=== PATIENT | female | born 1985 | race Caucasian/White ===

== ENCOUNTER 2018-07-15 12:47 | Inpatient (IN) | payer MEDICAID ==
[~2018-07-15] VITALS: Ht 152.4 cm; Wt 54.1 kg
[~2018-07-15 12:47] MED LIST: ALPRAZOLAM 0.0.25 M1 PO; CARAFATE 1 GM TA1 G1 PO; FLONASE 0.05%50 MCG NASAL; HYDROCODON-ACE1 EAC7 PO; HYDROCODONE-AP1 EAC6 PO; IRON325 PO; NORCO 5-325 TA1 EACH PO; NOVOLIN R100 UNIT/3; PANTOPRAZOLE SO40 M1 PO; PHENERGAN 25 MG25 M1 PO; PROMS25 WY RECTAL; PROTONIX40 M1 PO; ZOFRAN ODT4 MG PO
[2018-07-15 12:57] VITALS: BP 133/86
[2018-07-15] MEDS ORDERED: KEPPRA250 MG PO (13:03)
[2018-07-15 13:43] LABS: URINE BILIRUBIN NEGATIVE (Negative); URINE BLOOD 2+ (Negative); URINE CLARITY CLEAR; URINE COLOR YELLOW; URINE GLUCOSE-RANDOM NEGATIVE (Negative); URINE KETONES NEGATIVE (Negative); URINE LEUKOCYTES-REFLEX NEGATIVE (Negative); URINE NITRITE-REFLEX NEGATIVE (Negative); URINE PROTEIN NEGATIVE (Negative); URINE SPECIFIC GRAVITY >= 1.030 (1.005-1.030); URINE UROBILINOGEN 0.2 E.U./dl (0.2-1.0)
[2018-07-15 13:59] LABS: BACTERIA-REFLEX 1-9 Few /HPF (None Seen); CASTS None Seen /LPF (None Seen); CRYSTALS None Seen /LPF (None Seen); MUCUS None Seen strn/LPF (None Seen); SQUAMOUS >10 Many /LPF (0-3); URINE RBC 3-10 Few /HPF (0-2); URINE WBC-REFLEX 0-5 Rare /HPF (0-5)
[2018-07-15 14:36] LABS: ABSOLUTE EOSINOPHILS 0.1 thou/uL (0.0-0.7); ABSOLUTE LYMPHOCYTES 1.2 thou/uL (0.8-5.3); ABSOLUTE MONOCYTES 0.2 thou/uL (0.0-1.2); ABSOLUTE NEUTROPHILS 2.5 thou/uL (1.6-8.1); BASOPHILS 0.8 %; EOSINOPHILS 2.7 %; HEMATOCRIT 31.4 % (37.0-47.0); LYMPHOCYTES 29.3 %; MCH 22.4 pg (26.0-34.0); MCHC 31.8 g/dL (28.0-37.0); MCV 70.4 fL (80.0-100.0); MONOCYTES 5.4 %; MPV 7.9 fl. (7.2-11.1); NUCLEATED RBCS 0 /100WBC; PLATELET COUNT* 294 thou/uL (150-400); POLYS 61.8 %; RBC 4.46 mil/uL (4.20-5.00); RDW-CV 23.4 % (10.5-14.5)
[2018-07-15 15:37] LABS: AMP/METHAMP Negative (Negative); BARBITURATES Negative (Negative); BENZODIAZEPINES Negative (Negative); COCAINE Negative (Negative); METHADONE Negative (Negative); OPIATES Negative (Negative); PCP Negative (Negative); THC Negative (Negative)
[2018-07-15 16:32] LABS: CREATININE 0.6 mg/dL (0.6-1.3); POTASSIUM 3.9 mmol/L (3.5-5.1)
[2018-07-15 16:33] LABS: CALCIUM 8.8 mg/dL (8.5-10.1); TOTAL BILIRUBIN 0.6 mg/dL (<0.1-1.0)
[2018-07-15 16:34] LABS: ALBUMIN 3.7 g/dL (3.4-5.0)
[2018-07-15 16:47] LABS: APTT 29.9 Seconds (25.0-31.3); PROTIME 10.3 Seconds (9.20-11.50)
[2018-07-15 18:01] VITALS: BP 112/68
[2018-07-15 18:10] VITALS: BP 126/58
[2018-07-15] MEDS ORDERED: PROTONIX40 M1 PO (18:27)
--- NOTE | 2018-07-15 18:31 | NUR ---
PT ADMITTED TO UNIT ALERT AND ORIENTED X4. PT IS ON ROOM AIR. PT HAS AN ILEOSTOMY. PT C/O NAUSA AND VOMITING BLOOD ON ADMISSION. PT C/O PAIN IN ABD. PT IS CURRENTLY ON A PROTONIC DRIP. PT IS STEADY ON FEET AND IS STANDY BY ASSIST. FALL RISK PRECAUTIONS IN PLACE. WILL CONTINUE TO MONITOR.
--- NOTE | 2018-07-15 18:59 | NUR ---
PT REMAINED ALERT AND ORIENTED. PT C/O PAIN, IV MORPHINE GIVEN ORDERED. PT IS CURRENTLY NPO. FALL RISK PRECAUTIONS IN PLACE. HOURLY ROUNDING COMPLETED. WILL CONTINUE TO MONITOR.
[2018-07-15 20:22] VITALS: BP 110/63; BP 116/61
[2018-07-16] VITALS: BP 91/58
[2018-07-16 04:00] VITALS: BP 100/44
--- NOTE | 2018-07-16 05:02 | NUR ---
PT CARE ASSUMED AT 1930. SAT MAINTAINED IN RA. ALERT AND ORINETED X4. CALL LIGHT WITHIN REACH AND BED IN LOW POSITION. PT HAS COLOSTOMY BAG. UP STANDBY. SR TO SB RUNNING ON TELE MONITOR. PT C/O PAIN, MEDICATION GIVEN PER EMAR. HOURLY ROUNDING DONE FOR PT SAFETY.
[2018-07-16 11:59] VITALS: BP 108/72
[2018-07-16 15:45] VITALS: BP 105/66
[2018-07-16 18:06] LABS: HEMATOCRIT 28.3 % (37.0-47.0); HEMOGLOBIN 8.8 gm/dL (12.0-15.0)
--- NOTE | 2018-07-16 20:06 | NUR ---
I ASSUMED CARE OF THE PATIENT AT 0700. SHE IS ALERT AND ORIENTED X4 AND IS UP AD [facility]. PATIENT WENT OFF OF THE UNIT FOR EGD SHORTLY AFTER SHIFT CHANGE. SHE WAS NPO PRIOR TO PROCEDURE. HOURLY ROUNDING WAS COMPLETED AND PATIENT NEEDS WERE MET. PAIN IS MANAGED WITH PRN MEDS. PATIENT TOLERATED A CARB CONTROL DIET AFTER PROCEDURE. THERE IS A GASTRIC EMPTYING STUDY TO BE COMPLETED ON 07/17/18. BLOOD SUGARS WERE STABLE TODAY AND INSULIN WAS NOT INDICATED. BED IS IN THE LOW LOCKED POSITION AND CALL LIGHT IS IN REACH. CONTINUOUS FLUIDS ARE GOING AND ANTIBIOTICS WERE COMPLETED. WILL CONTINUE TO MONITOR.
[2018-07-16 20:20] VITALS: BP 107/89
[2018-07-17 00:08] VITALS: BP 117/74
[2018-07-17 04:40] VITALS: BP 93/52
--- NOTE | 2018-07-17 04:57 | NUR ---
PT CARE ASSUMED AT 1930. SAT MAINTAINED IN RA. ALERT AND ORIENTED X4. PT CALLS FOR PAIN MEDICATION FREQUENTLY, MEDICATION GIVEN PER EMAR. CALL LIGHT WITHIN REACH AND BED IN LOW POSITION. DENIES SOB. PT HAS COLOSTOMY BAG, EMPTIES BY HERSELF.HOURLY ROUNDING DONE FOR PT SAFETY.
[2018-07-17 08:25] VITALS: BP 93/48
[2018-07-17 15:27] VITALS: BP 93/48
[2018-07-17] MEDS ORDERED: TRAMADOL 50 MG50 MG PO (15:27)
[2018-07-17 15:33] VITALS: BP 96/54
--- NOTE | 2018-07-17 16:25 | NUR ---
PT IS ALERT AND ORIENTED X 4. NPO FOR TESTING. IVFS INFUSING. RECEIVED IV MORPHINE FOR PAIN RELIEF. RECEIVED IV ZOFRAN FOR NAUSEA. GASTRIC EMPTYING TESTING STARTED @ 1030 AND COMPLETED @ 1440. UP IN ROOM WITH MINIMAL ASSISTANCE. COLOSTOMY SELF MANAGED. DISCHARGE INSTRUCTIONS AND PRESCRIPTIONS GIVEN. IV REMOVED. PT LEFT UNIT WITH NURSING STAFF TO LEAVE WITH PERSONAL BELONGINGS BY PRIVATE CAR @ 1608 WITH SIGNIFICANT OTHER.
[2018-07-17 16:33] VITALS: BP 93/48
[2018-07-18] MEDS ORDERED: NORCO 5-325 TA1 EAC1 PO (21:35)
--- NOTE | 2018-07-19 12:23 | CON ---
[address] [address] CONSULTATION Name: EUGENIA RADFORD Room: [address] IN M.R.#: [id number] Admission: 07/15/18 Attend Phys: Yinka Marrero MD Discharge: 07/17/18 Date of : 89 Report #: [id number] THIS REPORT FOR: //name// CC: FENG physician/PCP Yinka Marrero DATE OF SERVICE: 07/17/2018 ATTENDING PHYSICIAN: Dr. Dwyer. REASON FOR EVALUATION: Positive blood culture. HISTORY OF PRESENT ILLNESS: Chart reviewed, patient examined. This is a 32-year-old woman with diabetes mellitus type 2 diagnosed at age 10. Other medical history includes history of ulcerative colitis and Crohn's for the former. She does have total colectomy with ileostomy. She still has ongoing intermittent disease related to her Crohn's. She presented with hematemesis, bright red blood, lower abdominal-related pain. She notes she has had previous esophageal perforation. She has been evaluated by GI. She underwent upper endoscopy, which showed normal esophagus, gastric bypass with normal size pouch, gastrojejunal anastomosis. Fresh blood was noted with clots. There is no particular focus that was noted. She is scheduled to have gastric emptying study. As per the initial workup, 2 blood cultures collected now 1 out of 2 with Gram-positive cocci. On questioning, she denies any significant pulmonary-related complaints. It is not clear that she has had any fevers. Does admit to some chills. She has had some anorexia with poor p.o. intake. She was started empirically on vancomycin. ALLERGIES: PENICILLINS, TORADOL, IOHEXOL. CURRENT MEDICATIONS: Include vancomycin, sucralfate, ferrous sulfate, pantoprazole, p.r.n. analgesics and antiemetics. PAST MEDICAL HISTORY: As described above, diabetes mellitus type 1, history of PTSD, depression, seizure disorder, history of Crohn's disease, colectomy with ileostomy, previous gastric bypass, previous partial gastrectomy. SOCIAL HISTORY: Nonsmoker, no ethanol. FAMILY HISTORY: Noncontributory. REVIEW OF SYSTEMS: Ten-point review of systems is otherwise unremarkable with exception noted in the history of present illness. PHYSICAL EXAMINATION: GENERAL: [id number] distress. [place] appears [place] [address] CONSULTATION Name: EUGENIA RADFORD Room: [address]#: [id number] Admission: 07/15/18 Attend Phys: Yinka Marrero MD Discharge: 07/17/18 Date of : 89 Report #: [id number] undernourished. She is lucid, not encephalopathic, somewhat of a flat affect. VITAL SIGNS: Temperature 98, pulse 69, respirations 16, blood pressure is 93/52. SKIN: Warm, dry, no rashes. HEENT: Extraocular muscles intact. No oral lesions. NECK: Supple. LUNGS: Clear to auscultation. HEART: Regular. I do not appreciate any murmur. ABDOMEN: Ileostomy in the right lower quadrant. She has got a midline incision that is well healed. Somewhat tender to light percussion. I do not think there are any true peritoneal signs. LOWER EXTREMITIES: Without edema. GENITOURINARY: Deferred. RECTAL: Deferred. LABORATORY DATA: Initial urinalysis, 0-5 white cells. CBC initially, white count 4.0, H and H 10.0, 31.4, platelets of 294. Drug screen was negative. test was negative. Chest x-ray, no acute process. Lactic acid 0.8. Electrolytes: Sodium 140, potassium 3.9, chloride 106, bicarb is 21, anion gap of 13, BUN and creatinine 16 and 0.6, glucose of 84. Albumin 3.7, total protein of 7.0. CT abdomen and pelvis noted the postoperative changes, prior right lower quadrant colostomy, stone in the right kidney pole, hydronephrosis. One out of two blood cultures positive, Gram-positive cocci. ASSESSMENT: Hematemesis. The patient underwent evaluation without clear option. I think in all likelihood, this is a false positive or contaminant. We will continue the next 24 hours with empiric antimicrobial therapy. I do not really have reasonable source, cannot entirely exclude streptococcus. We will await GI's final recommendations pending study results. I do not see another source that may explain the positive blood culture. Thank you, we will follow the patient. <ELECTRONICALLY SIGNED> By: Zachariah Brothers MD 07/19/18 [id number] Brothers MD /nt
== END 2018-07-17 16:08 | disposition home or self-care (01) | DRG 378 ==
LOC: M.ERS 12:47 → M.TBA-ER 15:11 → M.2W 15:11 → M.TBA-ER 17:58 → M.2W 07-17 14:02
PROVIDERS: Internal Medicine Gastroenterology; Nurse Practitioner Family; Physician Assistant
PROC: 3E1G88Z Irrigation of Upper GI using Irrigating Substance, Via Natural or Artificial Opening Endoscopic (ICD-10-PCS; principal; 2018-07-16)
DX: K92.0 Hematemesis (principal); K50.90 Crohn's disease, unspecified, without complications; D62 Acute posthemorrhagic anemia; E10.9 Type 1 diabetes mellitus without complications; K92.1 Melena; F43.10 Post-traumatic stress disorder, unspecified; G40.909 Epilepsy, unspecified, not intractable, without status epilepticus; F32.9 Major depressive disorder, single episode, unspecified; Z88.0 Allergy status to penicillin; Z88.8 Allergy status to other drugs, medicaments and biological substances; Z90.49 Acquired absence of other specified parts of digestive tract; Z90.3 Acquired absence of stomach [part of]; Z79.899 Other long term (current) drug therapy; Z87.11 Personal history of peptic ulcer disease; Z98.84 Bariatric surgery status

== ENCOUNTER 2018-07-18 20:31 | Emergency (ER) | payer MEDICAID ==
[~2018-07-18] VITALS: Ht 152.4 cm; Wt 56.7 kg
[~2018-07-18 20:31] MED LIST changes: +KEPPRA250 MG PO; +TRAMADOL 50 MG50 MG PO
[2018-07-18 20:59] LABS: URINE BILIRUBIN NEGATIVE (Negative); URINE BLOOD 1+ (Negative); URINE CLARITY CLEAR; URINE COLOR YELLOW; URINE GLUCOSE-RANDOM NEGATIVE (Negative); URINE KETONES 1+ (Negative); URINE LEUKOCYTES-REFLEX NEGATIVE (Negative); URINE NITRITE-REFLEX NEGATIVE (Negative); URINE PROTEIN NEGATIVE (Negative); URINE SPECIFIC GRAVITY >= 1.030 (1.005-1.030); URINE UROBILINOGEN 0.2 E.U./dl (0.2-1.0)
[2018-07-18 21:03] LABS: ABSOLUTE EOSINOPHILS 0.1 thou/uL (0.0-0.7); ABSOLUTE LYMPHOCYTES 1.8 thou/uL (0.8-5.3); ABSOLUTE MONOCYTES 0.4 thou/uL (0.0-1.2); ABSOLUTE NEUTROPHILS 3.2 thou/uL (1.6-8.1); BASOPHILS 0.4 %; EOSINOPHILS 2.1 %; HEMATOCRIT 30.4 % (37.0-47.0); HEMOGLOBIN 9.5 gm/dL (12.0-15.0); LYMPHOCYTES 32.2 %; MCH 22.2 pg (26.0-34.0); MCHC 31.3 g/dL (28.0-37.0); MONOCYTES 6.9 %; MPV 7.2 fl. (7.2-11.1); NUCLEATED RBCS 0 /100WBC; PLATELET COUNT* 288 thou/uL (150-400); POLYS 58.4 %; RBC 4.28 mil/uL (4.20-5.00); RDW-CV 22.8 % (10.5-14.5); WBC 5.6 thou/uL (4.0-11.0)
[2018-07-18 21:07] LABS: CALCIUM 8.5 mg/dL (8.5-10.1); CREATININE 0.7 mg/dL (0.6-1.3)
[2018-07-18 21:08] LABS: POTASSIUM 2.9 mmol/L (3.5-5.1)
[2018-07-18 21:11] LABS: ALBUMIN 3.6 g/dL (3.4-5.0); TOTAL BILIRUBIN 0.5 mg/dL (<0.1-1.0); TOTAL PROTEIN 7.6 g/dL (6.4-8.2)
[2018-07-18 21:16] LABS: CASTS None Seen /LPF (None Seen); MUCUS 4-6 Moderate strn/LPF (None Seen); SQUAMOUS >10 Many /LPF (0-3)
[2018-07-18 21:17] LABS: URINE WBC-REFLEX 0-5 Rare /HPF (0-5)
[2018-07-18 21:18] LABS: BACTERIA-REFLEX 1-9 Few /HPF (None Seen); CRYSTALS None Seen /LPF (None Seen); URINE RBC 3-10 Few /HPF (0-2)
[2018-07-18] MEDS ORDERED: NORCO 5-325 TA1 EAC1 PO (21:35)
[2018-07-18 21:48] VITALS: BP 105/66
[2018-07-19 04:23] LABS: HYPOCHROMASIA 2+; PLATELET ESTIMATE ADEQUATE
[2018-07-19 04:24] LABS: ANISOCYTOSIS 2+; MICROCYTES 2+
== END 2018-07-18 21:48 | disposition home or self-care (01) ==
LOC: M.ERS 20:31
PROVIDERS: Nurse Practitioner Family
DX: K92.0 Hematemesis (principal); R10.84 Generalized abdominal pain; K50.90 Crohn's disease, unspecified, without complications; E10.9 Type 1 diabetes mellitus without complications; F32.9 Major depressive disorder, single episode, unspecified; F42.9 Obsessive-compulsive disorder, unspecified; Z90.49 Acquired absence of other specified parts of digestive tract; Z86.718 Personal history of other venous thrombosis and embolism; Z91.041 Radiographic dye allergy status; Z88.6 Allergy status to analgesic agent; Z88.0 Allergy status to penicillin

== ENCOUNTER 2018-07-20 19:15 | Emergency (ER) | payer MEDICAID ==
[~2018-07-20] VITALS: Ht 152.4 cm; Wt 56.7 kg
[~2018-07-20 19:15] MED LIST changes: +NORCO 5-325 TA1 EAC1 PO
[2018-07-20 19:54] LABS: URINE BILIRUBIN NEGATIVE (Negative); URINE BLOOD TRACE (Negative); URINE CLARITY CLEAR; URINE COLOR YELLOW; URINE GLUCOSE-RANDOM NEGATIVE (Negative); URINE KETONES NEGATIVE (Negative); URINE LEUKOCYTES-REFLEX NEGATIVE (Negative); URINE NITRITE-REFLEX NEGATIVE (Negative); URINE PROTEIN NEGATIVE (Negative); URINE SPECIFIC GRAVITY >= 1.030 (1.005-1.030); URINE UROBILINOGEN 0.2 E.U./dl (0.2-1.0)
[2018-07-20 19:58] LABS: ABSOLUTE EOSINOPHILS 0.1 thou/uL (0.0-0.7); ABSOLUTE LYMPHOCYTES 1.7 thou/uL (0.8-5.3); ABSOLUTE MONOCYTES 0.3 thou/uL (0.0-1.2); BASOPHILS 0.6 %; EOSINOPHILS 2.4 %; HEMATOCRIT 32.3 % (37.0-47.0); HEMOGLOBIN 10.1 gm/dL (12.0-15.0); MCH 22.1 pg (26.0-34.0); MCHC 31.3 g/dL (28.0-37.0); MCV 70.6 fL (80.0-100.0); MONOCYTES 6.1 %; MPV 7.5 fl. (7.2-11.1); NUCLEATED RBCS 0 /100WBC; PLATELET COUNT* 337 thou/uL (150-400); POLYS 57.9 %; RBC 4.58 mil/uL (4.20-5.00); WBC 5.3 thou/uL (4.0-11.0)
[2018-07-20 20:00] LABS: CALCIUM 8.7 mg/dL (8.5-10.1); CREATININE 0.7 mg/dL (0.6-1.3)
[2018-07-20 20:04] LABS: ALBUMIN 3.6 g/dL (3.4-5.0); TOTAL BILIRUBIN 0.4 mg/dL (<0.1-1.0); TOTAL PROTEIN 7.7 g/dL (6.4-8.2)
[2018-07-20 20:16] LABS: APTT 29.8 Seconds (25.0-31.3); INR 0.9; PROTIME 9.6 Seconds (9.20-11.50)
[2018-07-20 20:30] LABS: ANISOCYTOSIS 2+; MICROCYTES 2+; OVALOCYTES 1+; PLATELET ESTIMATE ADEQUATE
[2018-07-20 20:31] LABS: HYPOCHROMASIA 1+
[2018-07-20 21:25] VITALS: BP 124/67
== END 2018-07-20 21:28 | disposition home or self-care (01) ==
LOC: M.ERS 19:15
PROVIDERS: Nurse Practitioner Family
DX: R10.32 Left lower quadrant pain (principal); E87.6 Hypokalemia; K92.0 Hematemesis; G40.909 Epilepsy, unspecified, not intractable, without status epilepticus; F32.9 Major depressive disorder, single episode, unspecified; E10.9 Type 1 diabetes mellitus without complications; K50.90 Crohn's disease, unspecified, without complications; Z98.84 Bariatric surgery status; Z88.0 Allergy status to penicillin; Z88.8 Allergy status to other drugs, medicaments and biological substances

== ENCOUNTER 2018-09-01 15:22 | Emergency (ER) | payer MEDICAID ==
[~2018-09-01] VITALS: Ht 152.4 cm; Wt 51.7 kg
[2018-09-01 16:05] LABS: URINE BILIRUBIN NEGATIVE (Negative); URINE BLOOD 3+ (Negative); URINE CLARITY CLEAR; URINE COLOR YELLOW; URINE GLUCOSE-RANDOM NEGATIVE (Negative); URINE KETONES NEGATIVE (Negative); URINE LEUKOCYTES-REFLEX 1+ (Negative); URINE PROTEIN 2+ (Negative); URINE SPECIFIC GRAVITY 1.025 (1.005-1.030); URINE UROBILINOGEN 0.2 E.U./dl (0.2-1.0)
[2018-09-01 16:06] LABS: URINE NITRITE-REFLEX POSITIVE (Negative)
[2018-09-01 16:11] LABS: MUCUS 0-3 Light strn/LPF (None Seen); SQUAMOUS >10 Many /LPF (0-3); URINE RBC >20 Many /HPF (0-2); URINE WBC-REFLEX >25 Many /HPF (0-5)
[2018-09-01 16:12] LABS: CASTS None Seen /LPF (None Seen); CRYSTALS None Seen /LPF (None Seen)
[2018-09-01 16:17] LABS: ABSOLUTE BASOPHILS 0.1 thou/uL (0.0-0.2); ABSOLUTE EOSINOPHILS 0.2 thou/uL (0.0-0.7); ABSOLUTE LYMPHOCYTES 2.2 thou/uL (0.8-5.3); ABSOLUTE MONOCYTES 0.3 thou/uL (0.0-1.2); ABSOLUTE NEUTROPHILS 4.4 thou/uL (1.6-8.1); BASOPHILS 0.7 %; HEMOGLOBIN 8.8 gm/dL (12.0-15.0); LYMPHOCYTES 30.6 %; MCH 20.6 pg (26.0-34.0); MCHC 30.4 g/dL (28.0-37.0); MCV 67.6 fL (80.0-100.0); MONOCYTES 4.7 %; MPV 6.8 fl. (7.2-11.1); NUCLEATED RBCS 0 /100WBC; PLATELET COUNT* 503 thou/uL (150-400); RBC 4.29 mil/uL (4.20-5.00); RDW-CV 17.5 % (10.5-14.5); WBC 7.2 thou/uL (4.0-11.0)
[2018-09-01 16:25] LABS: CALCIUM 8.9 mg/dL (8.5-10.1); CREATININE 0.7 mg/dL (0.6-1.3); POTASSIUM 3.8 mmol/L (3.5-5.1)
[2018-09-01 16:29] LABS: ALBUMIN 3.8 g/dL (3.4-5.0); TOTAL BILIRUBIN 0.5 mg/dL (<0.1-1.0); TOTAL PROTEIN 7.8 g/dL (6.4-8.2)
[2018-09-01 16:34] LABS: PLATELET ESTIMATE INCREASED
[2018-09-01 16:35] LABS: ANISOCYTOSIS 1+; MICROCYTES 1+
[2018-09-01 16:36] LABS: HYPOCHROMASIA 2+
[2018-09-01] MEDS ORDERED: NORCO 5-325 TA1 EACH PO (19:01)
[2018-09-01] MEDS ORDERED: BACTRIM DS TAB1 EACH PO (19:01)
[2018-09-01 19:15] VITALS: BP 102/66
== END 2018-09-01 19:15 | disposition left against medical advice (07) ==
LOC: M.ERS 15:22
PROVIDERS: Physician Assistant
DX: N39.0 Urinary tract infection, site not specified (principal); K92.0 Hematemesis; E10.9 Type 1 diabetes mellitus without complications; F32.9 Major depressive disorder, single episode, unspecified; F42.9 Obsessive-compulsive disorder, unspecified; K50.90 Crohn's disease, unspecified, without complications; Z88.6 Allergy status to analgesic agent; Z91.041 Radiographic dye allergy status; Z88.0 Allergy status to penicillin; Z90.49 Acquired absence of other specified parts of digestive tract

== ENCOUNTER 2018-10-07 16:30 | Emergency (ER) | payer MEDICAID ==
[~2018-10-07] VITALS: Ht 152.4 cm; Wt 52.2 kg
[~2018-10-07 16:30] MED LIST changes: +BACTRIM DS TAB1 EACH PO; +KEPPRA 500 MG500 M1 PO; +REGLAN 10 MG TA10 MG PO
[2018-10-07 17:18] LABS: ABSOLUTE BASOPHILS 0.1 thou/uL (0.0-0.2); ABSOLUTE EOSINOPHILS 0.2 thou/uL (0.0-0.7); ABSOLUTE LYMPHOCYTES 2.4 thou/uL (0.8-5.3); ABSOLUTE MONOCYTES 0.4 thou/uL (0.0-1.2); BASOPHILS 1.2 %; EOSINOPHILS 3.6 %; HEMATOCRIT 37.6 % (37.0-47.0); HEMOGLOBIN 12.1 gm/dL (12.0-15.0); LYMPHOCYTES 39.9 %; MCH 24.9 pg (26.0-34.0); MCHC 32.1 g/dL (28.0-37.0); MCV 77.7 fL (80.0-100.0); MONOCYTES 6.3 %; MPV 7.7 fl. (7.2-11.1); NUCLEATED RBCS 0 /100WBC; PLATELET COUNT* 297 thou/uL (150-400); RBC 4.84 mil/uL (4.20-5.00); RDW-CV 31.5 % (10.5-14.5)
[2018-10-07 17:25] LABS: PROTIME 9.8 Seconds (9.20-11.50)
[2018-10-07 17:43] LABS: ALBUMIN 3.5 g/dL (3.4-5.0); CALCIUM 8.4 mg/dL (8.5-10.1); CREATININE 0.7 mg/dL (0.6-1.3); POTASSIUM 3.9 mmol/L (3.5-5.1); TOTAL BILIRUBIN 0.3 mg/dL (<0.1-1.0); TOTAL PROTEIN 7.2 g/dL (6.4-8.2)
[2018-10-07 17:49] LABS: ANISOCYTOSIS 3+; PLATELET ESTIMATE ADEQUATE
[2018-10-07 17:50] LABS: MICROCYTES 1+; OVALOCYTES Occasional; TEARDROPS 1+
[2018-10-07 19:03] LABS: URINE BILIRUBIN NEGATIVE (Negative); URINE BLOOD NEGATIVE (Negative); URINE CLARITY CLEAR; URINE COLOR YELLOW; URINE GLUCOSE-RANDOM NEGATIVE (Negative); URINE KETONES NEGATIVE (Negative); URINE LEUKOCYTES-REFLEX NEGATIVE (Negative); URINE NITRITE-REFLEX NEGATIVE (Negative); URINE PROTEIN NEGATIVE (Negative); URINE UROBILINOGEN 0.2 E.U./dl (0.2-1.0)
[2018-10-07] MEDS ORDERED: NORCO 5-325 TA1 EACH PO (19:31)
[2018-10-07] MEDS ORDERED: ZOFRAN ODT4 MG PO (19:31)
[2018-10-07 20:14] VITALS: BP 93/60
== END 2018-10-07 20:14 | disposition home or self-care (01) ==
LOC: M.ERS 16:30
PROVIDERS: Physician Assistant
DX: R10.13 Epigastric pain (principal); R10.33 Periumbilical pain; R11.2 Nausea with vomiting, unspecified; K50.90 Crohn's disease, unspecified, without complications; E11.9 Type 2 diabetes mellitus without complications; F32.9 Major depressive disorder, single episode, unspecified; F42.9 Obsessive-compulsive disorder, unspecified; Z90.49 Acquired absence of other specified parts of digestive tract; Z79.4 Long term (current) use of insulin; Z91.041 Radiographic dye allergy status; Z88.6 Allergy status to analgesic agent; Z88.0 Allergy status to penicillin; Z90.89 Acquired absence of other organs

== ENCOUNTER 2018-12-31 20:30 | Inpatient (IN) | payer MEDICAID ==
[~2018-12-31] VITALS: Ht 152.4 cm; Wt 51.7 kg
--- NOTE | ~2018-12-31 | CON ---
[address] [address] CONSULTATION Name: EUGENIA RADFORD Room: [address] IN M.R.#: [id number] Admission: 12/31/18 Attend Phys: Meena Pressley Discharge: 01/01/19 Date of : 89 Report #: [id number] THIS REPORT FOR: //name// CC: FENG physician/PCP Sudhir Brooke HISTORY OF PRESENT ILLNESS: This is a pleasant 33-year-old female with a past medical history significant for suspected Crohn's disease, multiple episodes of nausea, vomiting, hematemesis, type 2 diabetes, who is presenting for evaluation of hematemesis. The patient reportedly has been to several hospitals including [facility] and [facility] for similar symptoms over the last few years. The patient reports that she was 2 days back, and following that, began having episodes of abdominal pain, nausea and vomiting. She was found to have episode hematemesis. The patient reports seeing about a cup full of bright red blood in her vomit, she reports similar to her episodes in the past. The patient reports she has had no other episodes of vomiting or hematemesis ____. The patient previously had an EGD performed by Dr. Turpin in the hospital, where she was found to have blood clots in her gastric fundus, without evidence of any source of bleeding. Additionally, the patient reports she had some sort of inflammatory bowel disease, for which she had a total colectomy and an ileostomy. The patient also reports a prior history of gastric bypass, but it is an unclear reason, why she had this. PAST MEDICAL HISTORY: As mentioned; ____ suspected inflammatory bowel disease/Crohn's disease, recurrent episodes of hematemesis, type 2 diabetes, gastroparesis. PAST SURGICAL HISTORY: History of gastric bypass, permanent ileostomy in 1999, proctocolectomy in 2014. SOCIAL HISTORY: The patient denies smoking, alcohol or recreational drug use. FAMILY HISTORY: Significant for diabetes, but no history of inflammatory bowel disease or colorectal cancer or Luna-related neoplasia. PHYSICAL EXAMINATION: VITAL SIGNS: Temperature 36.9, pulse rate 115, respirations 13, blood pressure 110/62. GENERAL: The patient is alert, awake, oriented x 3. HEENT: Pupils are equal, round, reactive to light and accommodation. Mucous membranes are moist. LUNGS: There is no congestion. Lungs are clear to auscultation bilaterally. CARDIOVASCULAR: Rate and rhythm regular, S1, S2 present. ABDOMEN: Soft. There is no significant distention, guarding or rigidity. The ileostomy is in place. No pain or [place] [address] CONSULTATION Name: EUGENIA RADFORD Room: [address] IN M.R.#: [id number] Admission: 12/31/18 Attend Phys: Meena Pressley Discharge: 01/01/19 Date of : 89 Report #: [id number] EXTREMITIES: Warm, well perfused, no edema. SKIN: Warm and dry. LABORATORY DATA: Hemoglobin 9.8, hematocrit 29.5, platelets 210, WBC count 4.7. Sodium 141, potassium 3.4, chloride 106, bicarbonate 24, BUN 13, creatinine 0.9, total bilirubin 0.6, AST 14, ALT 20, alkaline phosphatase 67. INR 1. Urine for benzos and opiates screen positive. ASSESSMENT AND PLAN: This is a 33-year-old female with several comorbidities including possible inflammatory bowel disease, status post total colectomy, gastroparesis, type 2 diabetes, status post gastric bypass, is presenting with episode of hematemesis. I offered the patient endoscopic evaluation for management of hematemesis, but she refused. The patient was quite adamant that she would like to get transferred to [place], [place]. I offered the patient to take her to [facility], where we have inpatient capsular endoscopy service available. However, she declined. The patient admits that her insurance would not be accepted at [facility] and would only be accepted at [place], [place]. The patient is requesting transfer. We can initiate it, provided that she is hemodynamically stable and continues to remain asymptomatic while she is here. About 30 minutes were spent face to face with the patient, obtaining history, performing the physical examination, formulating plan of care. All of the patient's questions were answered to her satisfaction. Thank you for this consultation. Please do not hesitate to call or contact me with any further questions. By: [id number] M Montilla MD /tha
[~2018-12-31 20:30] MED LIST changes: +FLAGYL500 M1 PO; +KEPPRA750 MG PO; +LEVAQUIN 500 M500 M2 PO; -NOVOLIN R100 UNIT/3; +NOVOLIN R100 UNIT/3 SUBQ
[2018-12-31 20:35] VITALS: BP 115/57
[2018-12-31 21:07] LABS: ABSOLUTE EOSINOPHILS 0.1 thou/uL (0.0-0.7); ABSOLUTE LYMPHOCYTES 1.6 thou/uL (0.8-5.3); ABSOLUTE MONOCYTES 0.4 thou/uL (0.0-1.2); ABSOLUTE NEUTROPHILS 2.6 thou/uL (1.6-8.1); BASOPHILS 0.8 %; EOSINOPHILS 1.1 %; HEMATOCRIT 29.5 % (37.0-47.0); HEMOGLOBIN 9.8 gm/dL (12.0-15.0); LYMPHOCYTES 33.4 %; MCH 30.1 pg (26.0-34.0); MCHC 33.2 g/dL (28.0-37.0); MCV 90.6 fL (80.0-100.0); MONOCYTES 8.7 %; MPV 7.2 fl. (7.2-11.1); NUCLEATED RBCS 0 /100WBC; PLATELET COUNT* 357 thou/uL (150-400); RBC 3.26 mil/uL (4.20-5.00); RDW-CV 15.5 % (10.5-14.5); WBC 4.7 thou/uL (4.0-11.0)
[2018-12-31 21:11] LABS: URINE BLOOD 1+ (Negative); URINE CLARITY CLEAR; URINE COLOR YELLOW; URINE GLUCOSE-RANDOM NEGATIVE (Negative); URINE LEUKOCYTES-REFLEX NEGATIVE (Negative); URINE NITRITE-REFLEX NEGATIVE (Negative); URINE PROTEIN 1+ (Negative); URINE UROBILINOGEN 0.2 E.U./dl (0.2-1.0)
[2018-12-31 21:14] LABS: ICTOTEST (BILI CONFIRMATORY) Negative (Negative); URINE BILIRUBIN 2+ (Negative); URINE KETONES 3+ (Negative)
[2018-12-31 21:17] LABS: PROTIME 10.2 Seconds (9.20-11.50)
[2018-12-31 21:25] LABS: CALCIUM 9.3 mg/dL (8.5-10.1); CREATININE 0.9 mg/dL (0.6-1.3); POTASSIUM 3.4 mmol/L (3.5-5.1)
[2018-12-31 21:29] LABS: ALBUMIN 3.4 g/dL (3.4-5.0); TOTAL BILIRUBIN 0.3 mg/dL (<0.1-1.0); TOTAL PROTEIN 7.2 g/dL (6.4-8.2)
[2018-12-31 21:32] LABS: HYALINE CASTS 0-3 Few /LPF (None Seen); MUCUS >6 Heavy strn/LPF (None Seen); SQUAMOUS >10 Many /LPF (0-3)
[2018-12-31 21:33] LABS: CRYSTALS None Seen /LPF (None Seen); URINE RBC 0-2 Rare /HPF (0-2); URINE WBC-REFLEX 0-5 Rare /HPF (0-5)
[2018-12-31 21:34] LABS: BACTERIA-REFLEX 1-9 Few /HPF (None Seen)
[2018-12-31 22:00] LABS: ANISOCYTOSIS 1+; PLATELET ESTIMATE ADEQUATE
[2018-12-31 22:01] LABS: POLYCHROMASIA Occasional
[2018-12-31 22:02] LABS: MICROCYTES Occasional
[2018-12-31 23:30] VITALS: BP 102/69
[2018-12-31 23:39] VITALS: BP 113/63
[2019-01-01 05:10] VITALS: BP 110/62
--- NOTE | 2019-01-01 05:55 | NUR ---
PT ADMITTED TO ICU 5 TELEMETRY STATUS FROM THE ER. PT MOVED SELF TO HOPSITAL BED. MONITORS APPIED AND ALARMS SET. PT ORIENTED TO ROOM, CALL SYSTEM AND TV CONTROLS. PT VOICED GOOD UNDERSTANDING. PT CONTINUE TO HAVE ABDOMINAL PAIN REQUIRING MEDICATION. NO ACTIVE BLEEDING NOTED SINCE ARRIVED TO ROOM. VSS AND NO ACUTE CHANGES DURING SHIFT WILL CONTINUE OT MONITOR. PT IS AWARE OF NPO STATUS AND VOICED UNDERSTANDING.
[2019-01-01 08:00] VITALS: BP 133/77
--- NOTE | 2019-01-01 11:03 | NUR ---
NURSE CREATIVE RESOURCE MANAGER PETAR MARCANO NOTIFIED OF PT REQUEST TO SPEAK WITH SOMEONE R/T HER CARE. PETAR MET WITH PT AND SPOKE WITH HER TO ADDRESS HER CONCERNS.
[2019-01-01 12:00] VITALS: BP 139/68
--- NOTE | 2019-01-01 14:00 | NUR ---
SPOKE WITH DR. MORGAN, HE DOES NOT FEEL PT NEEDS TO BE TRANSFERRED FOR FURTHER CARE. PT CAN MAKE ARRANGEMENTS AN OUTPATIENT TO BE SEEN AT A [facility]IARY CARE CENTER/TEACHING INSTITUTION IF SHE WISHES.
[2019-01-01 14:56] LABS: AMP/METHAMP Negative (Negative); BARBITURATES Negative (Negative); BENZODIAZEPINES POSITIVE (Negative); COCAINE Negative (Negative); METHADONE Negative (Negative); OPIATES POSITIVE (Negative); PCP Negative (Negative); THC Negative (Negative)
[2019-01-01 14:59] VITALS: BP 110/62
--- NOTE | 2019-01-01 15:37 | NUR ---
PT DISCHARGED HOME PER HER REQUEST. COPY OF DISCHARGE PAPERWORK TO PT WITH EXPLAINATION. PT VERBALIZED UNDERSTANDING. IV ACCESS REMOVED. PT AMBULATED OUT OF THE HOSPITAL, PER HER REQUEST, ACCOMPANIED BY HER .
== END 2019-01-01 15:41 | disposition home or self-care (01) | DRG 378 ==
LOC: M.ERS 20:30 → M.TBA-ER 21:57 → M.ICU 22:54
PROVIDERS: Emergency Medicine; Internal Medicine; ADMIT Internal Medicine
DX: K92.0 Hematemesis (principal); K50.90 Crohn's disease, unspecified, without complications; D64.9 Anemia, unspecified; F43.10 Post-traumatic stress disorder, unspecified; F32.9 Major depressive disorder, single episode, unspecified; G40.909 Epilepsy, unspecified, not intractable, without status epilepticus; F41.9 Anxiety disorder, unspecified; F42.9 Obsessive-compulsive disorder, unspecified; E11.9 Type 2 diabetes mellitus without complications; Z79.84 Long term (current) use of oral hypoglycemic drugs; Z98.84 Bariatric surgery status; Z90.49 Acquired absence of other specified parts of digestive tract; Z87.11 Personal history of peptic ulcer disease; Z88.0 Allergy status to penicillin; Z88.8 Allergy status to other drugs, medicaments and biological substances; Z91.041 Radiographic dye allergy status